=== PATIENT | male | born 1990 | race African-American/Black ===

== ENCOUNTER 2021-12-31 13:59 | Emergency (ER) | payer BC ==
[~2021-12-31] VITALS: Ht 180.3 cm; Wt 68.0 kg
--- NOTE | 2021-12-31 14:30 | NUR ---
GENERALIZED BODY RASH X 1 WEEK,ABDOMINAL PAIN X 5 DAYS. VITAL SIGNS ARE STABLE. BREATHING IS EVEN AND UNLABORED.
[2021-12-31] MEDS ORDERED: HYDR15CR41 TP (15:26)
--- NOTE | 2021-12-31 15:47 | NUR ---
IV removed. Catheter intact and site benign. Pressure and 4x4 applied to site. No bleeding noted.Patient discharged to home in stable condition. Written and verbal after care instructions given. Patient verbalizes understanding of instruction.
[2021-12-31 15:49] VITALS: BP 152/83
== END 2021-12-31 16:03 | disposition home or self-care (01) ==
LOC: ER 14:03
DX: L02.213 Cutaneous abscess of chest wall (principal); M75.92 Shoulder lesion, unspecified, left shoulder; M75.91 Shoulder lesion, unspecified, right shoulder; R19.7 Diarrhea, unspecified; Z79.891 Long term (current) use of opiate analgesic